=== PATIENT | female | born 1945 | race Caucasian/White ===

== ENCOUNTER 2020-10-17 13:04 | Outpatient (CLI) | payer MEDICARE, OTHER | END 2020-10-17 13:05 | disposition home or self-care (01) | LOC: CSHCT 13:04 | PROVIDERS: ATTEND Internal Medicine Gastroenterology | DX: C18.9 Malignant neoplasm of colon, unspecified (principal); R59.0 Localized enlarged lymph nodes; K57.90 Diverticulosis of intestine, part unspecified, without perforation or abscess without bleeding; I70.90 Unspecified atherosclerosis; M47.816 Spondylosis without myelopathy or radiculopathy, lumbar region; M48.061 Spinal stenosis, lumbar region without neurogenic claudication | CPT/HCPCS: 71260; 74177; 82565 ==